=== PATIENT | female | born 1980 | race Caucasian/White ===

== ENCOUNTER 2019-10-29 12:00 | Observation (INO) | payer OTHER ==
[~2019-10-29] VITALS: Ht 165.1 cm; Wt 108.9 kg
== END 2019-10-29 13:30 | disposition home or self-care (01) ==
LOC: 4S 12:00
PROVIDERS: ADMIT Specialist; ATTEND Specialist
DX: O36.8130 Decreased fetal movements, third trimester, not applicable or unspecified (principal); Z3A.38 38 weeks gestation of pregnancy
CPT/HCPCS: 59025; 81001; G0378